=== PATIENT | male | born 1990 | race Caucasian/White ===

== ENCOUNTER 2025-01-08 19:33 | Emergency (ER) | payer BC, SELFPAY ==
[2025-01-08 19:36] VITALS: BP 156/100
[2025-01-08 21:11] LABS: % Basophils 0.3 % (0-2); % Eosinophils 1.6 % (0-6); % Immature Granulocytes 0.3 % (0-0.5); % Lymphocytes 42.2 % (20.5-51.1); % Monocytes 12.4 % (1.7-9.3); % Neutrophils 43.2 % (42.2-75.2); Absolute Eosinophils 0.1 10^3/uL (0-0.7); Absolute Lymphocytes 1.4 10^3/uL (1.2-3.4); Absolute Monocytes 0.4 10^3/uL (0.1-0.6); Absolute Neutrophils 1.4 10^3/uL (1.4-6.5); Hemoglobin 16.3 g/dL (13.0-18.0); Mean Corpuscular Hgb 30.6 pg (27.0-31.0); Mean Corpuscular Volume 90.2 fL (80.0-94.0); Mean Platelet Volume 8.4 fL (7.4-10.4); Nucleated Red Blood Cells % 0 % (-); Platelet Count 141 10^3/uL (130-400); Red Blood Cell Count 5.32 10^6/uL (4.70-6.10); White Blood Cell Count 3.2 10^3/uL (4.8-10.8)
[2025-01-08 21:25] LABS: ALT (SGPT) 26 U/L (0-50); AST (SGOT) 32 U/L (17-59); Albumin 4.3 g/dl (3.5-5.0); Alkaline Phosphatase 54 U/L (38-126); Blood Urea Nitrogen 10 mg/dl (9-20); Calcium 8.8 mg/dl (8.4-10.2); Carbon Dioxide 23 mmol/L (22-30); Chloride 105 mmol/L (98-107); Glucose 109 mg/dl (70-99); Potassium 4.2 mmol/L (3.5-5.1); Sodium 138 mmol/L (135-145); Total Bilirubin 0.6 mg/dl (0.2-1.3); Total Protein 7.4 g/dl (6.3-8.2); eGFR > 60.00
[2025-01-08 21:55] LABS: TSH Reflex To Free T4 1.81 uIU/ml (0.47-4.68)
[2025-01-08 22:12] VITALS: BP 120/79
--- NOTE | 2025-01-08 22:18 | ED.GENMED ---
History of Present Illness
General
Chief Complaint: Cold/Flu/URI Symptoms
Source: patient
Exam Limitations: none
Time Seen by Provider: 01/08/25 20:16
Nursing documentation reviewed up to this point in time: agreed with
History of Present Illness
History of Present Illness:
Patient states he feels like he has the flu. Reports body aches, fatigue. He is concerned because he feels like he can not sleep and is having a difficulty time focusing. He has a hard time explaining what he is feeling. Denies SI, HI,
hallucinations. Denies headache, dizziness, blurred vision. He admits to feeling anxious and admits to stresses at home and work. Agreeable to crisis consult.
Past History
Past History
ED Past Medical History: None
ED Past Surgical History: None
Social History
Tobacco: Non-smoker
Alcohol: Daily
Drug: Marijuana
Personal: Single
Living: alone
Employment: Employed
Review of Systems
Review of Systems
Allergies reviewed?: Yes
All Other Systems: ROS reviewed and negative except as documented in HPI and ROS
Constitutional: Reports fatigue and other (bodyaches)
EENT: Reports no symptoms
Respiratory: Reports no symptoms
Cardiac: Reports no symptoms
ABD/GI: Reports no symptoms
Musculoskeletal: Reports no symptoms
Skin: Reports no symptoms
Neurological: Reports no symptoms
Psychiatric: Reports anxiety
Phy Exam
General Physical Exam
General Presentation: well appearing and no apparent distress
General age: appears stated age
General Skin: warm and dry
General Habitus: normal
ENT Exam
ENT Exam: EOMI, TM's normal and neck supple
Eye Exam
Eye Exam: PERRL, EOMI, conjunctiva normal and globe normal
Cardiovascular Exam
Cardiovascular Exam: regular rate/rhythm and no edema
Pulmonary Exam
Pulmonary Exam: lungs clear and no respiratory distress
Neurological Exam
Neurological Exam: alert, oriented x3, CN II-XII intact, no sensory deficits, speech normal and normal gait
Musculoskeletal Exam
Musculoskeletal Exam: full ROM and neuro vasc intact
Skin Exam
Skin Exam: normal color, warm/dry and no rash
Psychiatric Exam
Psychiatric Exam: anxious
Course
Orders/Labs/Results
Orders:
Orders
01/08/25 20:31
Crisis Consult Urgent
Reason for Consult: anxiety, confusion
01/08/25 20:59
Complete Blood Count/With Diff Urgent
Comprehensive Metabolic Panel Urgent
TSH Reflex To Free T4 Urgent
Influenza A+B Rapid Molecular Urgent
[facility]LEY Source: Nasal Swab
Specimen Description:
Abnormal Lab Results
01/08/25
20:59
WBC 3.2 L 10^3/uL
(4.8-10.8)
Monocytes % 12.4 H %
(1.7-9.3)
Glucose 109 H mg/dl
(70-99)
01/08/25 20:59
01/08/25 20:59
Vital Signs
Initial and Last Documented VS:
Initial Vital Signs
Temp Pulse Resp BP Pulse Ox
98.2 F 105 16 156/100 97
01/08/25 19:36 01/08/25 19:36 01/08/25 19:36 01/08/25 19:36 01/08/25 19:36
Last Documented Vital Signs
Temp Pulse Resp BP Pulse Ox
98.2 F 81 18 120/79 98
01/08/25 19:36 01/08/25 22:12 01/08/25 22:12 01/08/25 22:12 01/08/25 22:12
*Critical Care Note
Total Time (30-74mins, 75-104mins- exclusive of procedures): Not Applicable
Update Note
Update Note:
Influenza A pos. CBC, CMP without concerning findings. Discussed lab results, pos influenza test with him. He was able to speak with crisis and was given information for outpatient follow up. He denies SI, HI. Feels safe. Will dishcarge home
and he will follow up with PCP. Given instructions on s/s to return to ED and he is agreeable to plan.
ED Attending Note
-
Portions of this chart may have been created with voice recognition software.� Occasional wrong word or��sound alike� substitutions may have occurred due to the inherent limitations of voice recognition software.
Discharge Plan
Departure
Patient Disposition: Home (Routine Discharge)
Date of Disposition: 01/08/25
Time of Disposition: 22:03
Patient with high blood pressure during this ER visit?: No
Condition: Good
Covid-19: Not Applicable
Discharge Problem:
Influenza A
Instructions: Flu in adults - Discharge instructions
Prescriptions:
No Action
azithromycin 250 MG tablet
250 mg PO Daily Qty: 6 0RF
Rx Instructions:
500mg day 1, 250mg days 2-5
Referrals:
Ricardo Villrareal MD [Family Provider] - Follow up in 2-3 days
Stand Alone Forms: Return to Work
Interventions
Interventions:
*Risk Screen - Suicide Last Done: 01/08/25 19:36
*General Assessment Last Done: 01/08/25 19:36
*Neglect/Abuse Screening Last Done: 01/08/25 19:36
*Nursing Disposition Last Done: 01/08/25 22:12
ED- Neurological Assessment Last Done: 01/08/25 21:18
ED-Psychological Assessment Last Done: 01/08/25 21:18
ED- Pulmonary Assessment Last Done: 01/08/25 21:18
ED-Suicide Risk Assessment Last Done: 01/08/25 21:18
Discharge Date and Time
Discharge Date/Time: 01/08/25 22:12
Print Language: SYRIAC
== END 2025-01-08 22:12 | disposition home or self-care (01) ==
LOC: EMR 19:33
PROVIDERS: Nurse Practitioner; EMERGENCY PHYSICIAN Student in an Organized Health Care Education/Training Program; FAMILY PHYSICIAN Family Medicine
DX: J10.1 Influenza due to other identified influenza virus with other respiratory manifestations (principal); F41.9 Anxiety disorder, unspecified; R41.0 Disorientation, unspecified; Z73.3 Stress, not elsewhere classified; Z88.0 Allergy status to penicillin
CPT/HCPCS: 99283; 80053; 84443; 85025; 87502